=== PATIENT | male | born 1935 | race Caucasian/White ===

== ENCOUNTER 2019-10-08 23:21 | Observation (INO) | payer MEDICARE, OTHER ==
[~2019-10-08] VITALS: Ht 190.5 cm; Wt 102.0 kg
[2019-10-08] MEDS ORDERED: heparin 25,000 UNIT/250ml bag 250 ML IV SCH (23:26)
[2019-10-08] MEDS ORDERED: heparin 10,000 units/1 ML INJ IV PRN (23:30)
[2019-10-08 23:48] LABS: BASOPHILS # (AUTO) 0.1 X10'3 (0-0.2); BASOPHILS % (AUTO) 0.9 % (0-1); EOSINOPHILS # (AUTO) 0.2 X10'3 (0-0.9); EOSINOPHILS % (AUTO) 1.9 % (0-6); HEMATOCRIT 27.1 % (42.0-52.0); HEMOGLOBIN 8.9 g/dl (14.0-17.9); LYMPHOCYTES # (AUTO) 0.9 X10'3 (1.1-4.8); LYMPHOCYTES % (AUTO) 7.6 % (21-51); MEAN CORPUSCULAR HEMOGLOBIN 31.2 PG (27.0-31.0); MEAN CORPUSCULAR HGB CONC 32.8 g/dL (33.0-36.5); MEAN CORPUSCULAR VOLUME 95.2 FL (78-98); MEAN PLATELET VOLUME 8.4 FL (7.4-10.4); MONOCYTES # (AUTO) 1.2 X10'3 (0-0.9); NEUTROPHILS # (AUTO) 9.8 X10'3 (1.8-7.7); NEUTROPHILS % (AUTO) 79.6 % (42-75); PLATELET COUNT 78 X10'3 (140-440); RED BLOOD COUNT 2.85 X10'6 (4.70-6.10); RED CELL DISTRIBUTION WIDTH 19.6 % (11.5-14.5); WHITE BLOOD COUNT 12.3 X10'3 (4.5-11.0)
[2019-10-09] VITALS (7 sets, daily range): BP systolic 153–188; BP diastolic 47–60
[2019-10-09 00:01] LABS: ALANINE AMINOTRANSFERASE 34 U/L (12-78); ALBUMIN/GLOBULIN RATIO 1.1 (1.1-1.5); ALKALINE PHOSPHATASE 244 IU/L (46-116); ANION GAP 11 (8-16); ASPARTATE AMINO TRANSFERASE 53 U/L (10-37); BILIRUBIN,TOTAL 1.4 MG/DL (0.1-1.0); BLOOD UREA NITROGEN 45 MG/DL (7-18); CALCIUM 8.7 MG/DL (8.5-10.1); CHLORIDE 108 MMOL/L (99-107); CREATININE 2.05 MG/DL (0.60-1.10); GLUCOSE 91 MG/DL (70-104); POTASSIUM 3.8 MMOL/L (3.5-5.1); SODIUM 140 MMOL/L (135-145); TOTAL CARBON DIOXIDE 20.9 MMOL/L (24-32); TOTAL PROTEIN 5.8 G/DL (6.4-8.2); eGFR 31 ML/MIN
[2019-10-09] MEDS ORDERED: AMIO200T61 PO (00:05)
[2019-10-09] MEDS ORDERED: APIX5TAB3 PO (00:05)
[2019-10-09] MEDS ORDERED: ATOR20TA PO (00:06)
[2019-10-09] MEDS ORDERED: OSC500T PO (00:06)
[2019-10-09 00:07] LABS: MAGNESIUM 2.7 MG/DL (1.5-2.4)
[2019-10-09] MEDS ORDERED: CHOL20004 PO (00:07)
[2019-10-09] MEDS ORDERED: levothyroxine PO (00:08)
[2019-10-09] MEDS ORDERED: LOSA25TA96 PO (00:08)
[2019-10-09] MEDS ORDERED: METO1TAB25 PO (00:09)
[2019-10-09] MEDS ORDERED: POLY17PO10 PO (00:10)
[2019-10-09] MEDS ORDERED: SUMA25TA35 PO (00:10)
[2019-10-09] MEDS ORDERED: SENN-263 PO (00:10)
[2019-10-09] MEDS ORDERED: SUMAtriptan 25 MG tablet PO PRN (01:05)
[2019-10-09] MEDS: heparin 25,000 UNIT/250ml bag 250 ML IV SCH ×2 (01:07→08:50)
[2019-10-09] MEDS ORDERED: mag hydrox/Alum hydrox/simeth 30ml oral suspension PO PRN (01:10)
[2019-10-09] MEDS ORDERED: magnesium 2GM in 50ml NS 50 ML IV PRN (01:10)
[2019-10-09] MEDS ORDERED: potassium CL 10mEq/100ml bag 100 ML IV PRN ×2 (01:10)
[2019-10-09] MEDS ORDERED: magnesium hydroxide 30ml (MOM) UD suspension PO PRN (01:10)
[2019-10-09] MEDS ORDERED: acetaminophen 325mg tablet PO PRN ×2 (01:10)
[2019-10-09] MEDS ORDERED: morphine 2 MG/ML inj. syringe IV PRN ×2 (01:10)
[2019-10-09] MEDS ORDERED: magnesium 4gm in 100ml NS 100 ML IV PRN (01:10)
[2019-10-09] MEDS ORDERED: ondansetron/PF 4mg/2ml inj IV PRN (01:10)
[2019-10-09] MEDS ORDERED: ipratropium/albuterol 3ml nebule NEB PRN (01:10)
[2019-10-09] MEDS ORDERED: heparin 10,000 units/1 ML INJ IV ONE (01:10)
[2019-10-09] MEDS ORDERED: heparin 10,000 units/1 ML INJ IV PRN (01:10)
[2019-10-09] MEDS ORDERED: potassium Cl 20 mEq SR tablet PO PRN ×2 (01:10)
[2019-10-09 03:32] LABS: ALANINE AMINOTRANSFERASE 32 U/L (12-78); ALBUMIN 3.1 G/DL (3.4-5.0); ALBUMIN/GLOBULIN RATIO 1.1 (1.1-1.5); ALKALINE PHOSPHATASE 248 IU/L (46-116); ANION GAP 13 (8-16); ASPARTATE AMINO TRANSFERASE 58 U/L (10-37); BILIRUBIN,TOTAL 1.5 MG/DL (0.1-1.0); BLOOD UREA NITROGEN 45 MG/DL (7-18); CHLORIDE 107 MMOL/L (99-107); CREATININE 2.05 MG/DL (0.60-1.10); GLUCOSE 89 MG/DL (70-104); POTASSIUM 3.9 MMOL/L (3.5-5.1); SODIUM 141 MMOL/L (135-145); TOTAL CARBON DIOXIDE 20.8 MMOL/L (24-32); eGFR 31 ML/MIN
--- NOTE | 2019-10-09 03:42 | NUR ---
PAGER ID: [phone] MESSAGE: Pt Khoi Burnett 83 M here for NSTEMI critical 3hr trop of 2.18, pt on hep gtt.-Sabino 1286
--- NOTE | 2019-10-09 04:18 | NUR ---
Page Sent PAGER ID: [phone] MESSAGE: Pt Khoi Burnett 83 M here for NSTEMI. Notified by lab unable to obtain a PTT reading, PTT too high, infusion held per protocol, will continue to follow protocol.- Sabino [id number]
[2019-10-09 05:00] LABS: PLATELET ESTIMATE DECREASED
[2019-10-09 05:02] LABS: ANISOCYTOSIS 2+
--- NOTE | 2019-10-09 06:14 | NUR ---
Problems reprioritized. Patient report given, questions answered & plan of care reviewed with Daniel OSBORNE.
[2019-10-09 06:23] LABS: BASOPHILS # (AUTO) 0.1 X10'3 (0-0.2); EOSINOPHILS # (AUTO) 0.2 X10'3 (0-0.9); EOSINOPHILS % (AUTO) 1.8 % (0-6); HEMATOCRIT 26.4 % (42.0-52.0); HEMOGLOBIN 8.8 g/dl (14.0-17.9); LYMPHOCYTES # (AUTO) 0.6 X10'3 (1.1-4.8); LYMPHOCYTES % (AUTO) 5.6 % (21-51); MEAN CORPUSCULAR HEMOGLOBIN 31.6 PG (27.0-31.0); MEAN CORPUSCULAR HGB CONC 33.1 g/dL (33.0-36.5); MEAN CORPUSCULAR VOLUME 95.4 FL (78-98); MEAN PLATELET VOLUME 8.3 FL (7.4-10.4); MONOCYTES # (AUTO) 1.1 X10'3 (0-0.9); MONOCYTES % (AUTO) 9.5 % (2-12); NEUTROPHILS # (AUTO) 9.3 X10'3 (1.8-7.7); NEUTROPHILS % (AUTO) 82.1 % (42-75); PLATELET COUNT 81 X10'3 (140-440); RED BLOOD COUNT 2.77 X10'6 (4.70-6.10); RED CELL DISTRIBUTION WIDTH 19.5 % (11.5-14.5); WHITE BLOOD COUNT 11.3 X10'3 (4.5-11.0)
--- NOTE | 2019-10-09 06:39 | NUR ---
Patient in room PCU 3016. I have received report from Sabino OSBORNE and had the opportunity to ask questions and assume patient care.
--- NOTE | 2019-10-09 07:05 | NUR ---
Paged Dr. Mendes. Khoi Burnett. 4046L. FYI critical PTT of 109. Heparin GTT will be held for 2 hr, rate will be decreased by 3 u/kg/hr. TY Daniel [id number]
[2019-10-09 07:40] LABS: ANISOCYTOSIS 2+; PLATELET ESTIMATE DECREASED; POLYCHROMASIA FEW
[2019-10-09 07:41] LABS: SCHISTOCYTES FEW
[2019-10-09] MEDS: losartan 50mg tablet PO SCH (07:44)
[2019-10-09] MEDS: polyethylene glycol 3350 17gm powd pack PO SCH (07:44)
[2019-10-09] MEDS: vitamin D (cholecalciferol) 1,000 unit tablet PO SCH (07:45)
[2019-10-09] MEDS: sennosides 8.6mg tablet PO SCH (07:45)
[2019-10-09] MEDS: levoTHYROXINE 100mcg tablet PO SCH (07:45)
[2019-10-09] MEDS: calcium carbonate 500mg tablet PO SCH (07:45)
[2019-10-09] MEDS: amiodarone 200mg tablet PO SCH ×2 (07:45→20:44)
[2019-10-09] MEDS: K and/or MAG REPLACEMENT MC SCH ×2 (07:56→20:00)
--- NOTE | 2019-10-09 12:25 | NUR ---
paged Dr. Mendes. Khoi Burnett. 2114Y. FYI 12hr troponin was 2.20. Daniel 260
[2019-10-09] MEDS ORDERED: ondansetron 4mg rapidly disintigrating tab PO PRN (13:30)
--- NOTE | 2019-10-09 18:25 | NUR ---
Problems reprioritized. Patient report given, questions answered & plan of care reviewed with Jese OSBORNE.
--- NOTE | 2019-10-09 19:03 | NUR ---
Patient in room PCU 3016. I have received report from Jese OSBORNE and had the opportunity to ask questions and assume patient care.
[2019-10-09] MEDS ORDERED: atorvastatin 20mg tablet PO SCH (21:00)
--- NOTE | 2019-10-10 | NUR ---
Page Sent PAGER ID: [phone] MESSAGE: pt [id number] Khoi Burnett 83 M here for NSTEMI BP 179/52
[2019-10-10 02:00] VITALS: BP 158/57
--- NOTE | 2019-10-10 06:27 | NUR ---
Problems reprioritized. Patient report given, questions answered & plan of care reviewed with Kya OSBORNE.
[2019-10-10 06:30] VITALS: BP 178/47
--- NOTE | 2019-10-10 06:31 | NUR ---
Patient in room PCU 3016B. I have received report from Sabino OSBORNE and had the opportunity to ask questions and assume patient care.
[2019-10-10 06:34] LABS: BASOPHILS # (AUTO) 0.1 X10'3 (0-0.2); EOSINOPHILS # (AUTO) 0.2 X10'3 (0-0.9); EOSINOPHILS % (AUTO) 1.8 % (0-6); HEMATOCRIT 26.5 % (42.0-52.0); HEMOGLOBIN 8.7 g/dl (14.0-17.9); LYMPHOCYTES # (AUTO) 0.6 X10'3 (1.1-4.8); LYMPHOCYTES % (AUTO) 4.8 % (21-51); MEAN CORPUSCULAR HEMOGLOBIN 31.6 PG (27.0-31.0); MEAN CORPUSCULAR HGB CONC 32.8 g/dL (33.0-36.5); MEAN CORPUSCULAR VOLUME 96.3 FL (78-98); MEAN PLATELET VOLUME 7.7 FL (7.4-10.4); MONOCYTES # (AUTO) 1.1 X10'3 (0-0.9); MONOCYTES % (AUTO) 9.4 % (2-12); NEUTROPHILS # (AUTO) 9.8 X10'3 (1.8-7.7); PLATELET COUNT 76 X10'3 (140-440); RED BLOOD COUNT 2.75 X10'6 (4.70-6.10); RED CELL DISTRIBUTION WIDTH 19.9 % (11.5-14.5); WHITE BLOOD COUNT 11.8 X10'3 (4.5-11.0)
[2019-10-10 06:41] LABS: ALANINE AMINOTRANSFERASE 29 U/L (12-78); ALBUMIN 2.8 G/DL (3.4-5.0); ALKALINE PHOSPHATASE 219 IU/L (46-116); ANION GAP 13 (8-16); ASPARTATE AMINO TRANSFERASE 55 U/L (10-37); BILIRUBIN,TOTAL 1.6 MG/DL (0.1-1.0); BLOOD UREA NITROGEN 42 MG/DL (7-18); BUN/CREATININE RATIO 24.6 (5.4-32.0); CALCIUM 8.6 MG/DL (8.5-10.1); CHLORIDE 109 MMOL/L (99-107); CREATININE 1.71 MG/DL (0.60-1.10); GLUCOSE 89 MG/DL (70-104); MAGNESIUM 2.5 MG/DL (1.5-2.4); SODIUM 142 MMOL/L (135-145); TOTAL PROTEIN 5.5 G/DL (6.4-8.2); eGFR 39 ML/MIN
[2019-10-10] MEDS: levoTHYROXINE 100mcg tablet PO SCH (07:51)
[2019-10-10] MEDS: amiodarone 200mg tablet PO SCH (07:51)
[2019-10-10] MEDS: losartan 50mg tablet PO SCH (07:52)
[2019-10-10] MEDS: vitamin D (cholecalciferol) 1,000 unit tablet PO SCH (07:52)
[2019-10-10] MEDS: sennosides 8.6mg tablet PO SCH (07:53)
[2019-10-10] MEDS: polyethylene glycol 3350 17gm powd pack PO SCH (07:53)
[2019-10-10] MEDS: calcium carbonate 500mg tablet PO SCH (07:53)
[2019-10-10] MEDS: K and/or MAG REPLACEMENT MC SCH (08:00)
[2019-10-10 09:37] LABS: ANISOCYTOSIS 2+; PLATELET ESTIMATE DECREASED; POLYCHROMASIA 1+
[2019-10-10 09:38] LABS: ACANTHOCYTES FEW; BURR CELLS FEW; ELLIPTOCYTES FEW; SCHISTOCYTES FEW
[2019-10-10 11:00] VITALS: BP 176/72
--- NOTE | 2019-10-10 11:01 | NUR ---
Hardik KOHLI PAGER ID: [phone] MESSAGE: Kya short [id number]. Peterson Saravia 3016B. 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
--- NOTE | 2019-10-10 12:32 | NUR ---
Paged case management RE Peterson Burnett [id number]. Please call when you get the chance regarding hospice/discharge. Thank you!
--- NOTE | 2019-10-10 15:15 | NUR ---
Per MD, patient stable for discharge home. Per Implementation Analyst Estefani, she had spoken to patient's Willa and Willa stated that they are arranging hospice through their oncologist and they have proper equipment to take care of patient at home. will call oncologist tomorrow to finish arrangements-- Dr Mendes made aware of this plan. Discharge photos taken of coccyx. Discharge packet completed and all questions answered, there are no new prescriptions. IV removed with catheter intact and tele monitor returned to [facility]. and daughter brought portable O2 which was placed on patient before transfer. Patient escorted from hospital via wheelchair and driven home with and daughter via private vehicle.
== END 2019-10-10 15:15 | disposition hospice, home (50) ==
LOC: ER 23:22 → ED HOLD 10-09 01:07 → PCU 3S 10-09 02:35
PROVIDERS: ADMIT Family Medicine; ATTEND Family Medicine
DX: I21.4 Non-ST elevation (NSTEMI) myocardial infarction (principal); I48.91 Unspecified atrial fibrillation; I11.0 Hypertensive heart disease with heart failure; I50.9 Heart failure, unspecified; D69.6 Thrombocytopenia, unspecified; N28.9 Disorder of kidney and ureter, unspecified; C34.90 Malignant neoplasm of unspecified part of unspecified bronchus or lung; C79.31 Secondary malignant neoplasm of brain; C78.7 Secondary malignant neoplasm of liver and intrahepatic bile duct; E78.5 Hyperlipidemia, unspecified; E03.9 Hypothyroidism, unspecified; D64.9 Anemia, unspecified; D72.829 Elevated white blood cell count, unspecified; Z86.73 Personal history of transient ischemic attack (TIA), and cerebral infarction without residual deficits; Z79.01 Long term (current) use of anticoagulants; Z79.899 Other long term (current) drug therapy
CPT/HCPCS: 36415; 71045; 80053; 83735; 83880; 84484; 85025; 85610; 85730; 87081; 93005; 94760; 96365; 96366; 99285; G0378; J1644